=== PATIENT | male | born 1995 | race African-American/Black ===

== ENCOUNTER 2017-02-21 08:47 | Emergency (ER) | payer BC ==
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
[~2017-02-21 08:47] MED LIST: FLEXERIL10 MG PO; NAPROSYN-EC500 M1 PO; NO MEDICATIONS
[2017-02-21] MEDS ORDERED: LORTAB 5-325 M1 EACH (08:55)
[2017-02-21 09:53] LABS: INFLUENZA A NEG (NEG); INFLUENZA B NEG (NEG)
[2017-03-16] MEDS ORDERED: NO HOME MEDS (16:43)
[2017-03-19] MEDS ORDERED: TYL325 PO (21:27)
== END 2017-02-21 11:50 | disposition home or self-care (01) ==
LOC: SED 08:47
PROVIDERS: Emergency Medicine
DX: L73.2 Hidradenitis suppurativa (principal); R59.0 Localized enlarged lymph nodes; F17.210 Nicotine dependence, cigarettes, uncomplicated
CPT/HCPCS: 71250; 87651; 87804; 94640; 99284

== ENCOUNTER 2017-02-23 16:44 | Emergency (ER) | payer BC ==
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
--- NOTE | ~2017-02-23 | CT71 ---
[facility] A Service of [facility] RADIOLOGY TEXT RESULTS PATIENT: JARETH RUTH LOCATION: SED : [birth year] UNIT #: [id number] AGE: [address]: Jewel Dodge PAC SEX: M ORDER DR: [id number] [place] [id number] E MR#: [id number] Acc #: [id number] NAME: JARETH RUTH : 1995 SEX: M STUDY DATE/TIME: 02/23/2017 18:37 UNIT: SED ROOM: STUDY DESCRIPTION: CT Head Wo Contrast Attending Physician: Jewel Dodge P.A.-C. Ordering Physician: Jewel Dodge P.A.-C. Primary Care Physician: No Primary Care Physician MEDICAL IMAGING REPORT This report is preliminary unless electronic signature is present. EXAM Noncontrast head CT. HISTORY Fever, dizziness, swollen arms for [address], 03/06/2016. TECHNIQUE This CT exam was performed with one or more of the following radiation dose reduction techniques: automatic exposure control, adjustment of mA and/or kV according to patient size, and iterative reconstruction. FINDINGS Axial noncontrast imaging of the brain demonstrates no acute intracranial abnormality. No mass, mass effect, or midline shift. No hemorrhage. There is subtle decreased attenuation of the left posterior occipital lobe though this remains unchanged when compared to prior studies. This is of doubtful clinical significance and may be artifactual. Bony calvaria, skull base, mastoids, and sinuses unremarkable. IMPRESSION No acute intracranial abnormality identified. No change from head CT 03/06/2016. Dictated by... Anny Damon M.D. THIS IS AN ELECTRONICALLY VERIFIED REPORT [facility] A Service [facility] RADIOLOGY TEXT RESULTS PATIENT: JARETH RUTH LOCATION: SED : [birth year] UNIT #: [id number] AGE: [address]: Burckle,Jewel W PAC SEX: M ORDER DR: Anny Damon M.D. at 02/24/2017 2:21 PM JETT/amor TD: 02/23/2017 23:05 JOB #: [id number] MEDICAL IMAGING REPORT Page 1 of 1
--- NOTE | ~2017-02-23 | CT4 ---
[facility] A Service of [facility] RADIOLOGY TEXT RESULTS PATIENT: JARETH RUTH LOCATION: SED : [birth year] UNIT #: [id number] AGE: [address]: Jewel Dodge SEX: M ORDER DR: [id number] [place] [id number] E MR#: [id number] Acc #: [id number] NAME: JARETH RUTH : 1995 SEX: M STUDY DATE/TIME: 02/23/2017 19:33 UNIT: SED ROOM: STUDY DESCRIPTION: CT Abd and Pelv Wo Cont Attending Physician: Jewel Dodge P.A.-C. Ordering Physician: Jewel Dodge P.A.-C. MEDICAL IMAGING REPORT This report is preliminary unless electronic signature is present. EXAM CT abdomen and pelvis without contrast HISTORY Abdominal pain, nausea and vomiting since yesterday. COMPARISON CT chest 02/21/2017. TECHNIQUE Axial images performed through the abdomen and pelvis without contrast. Multiplanar reconstructed images reviewed. This CT exam was performed with one or more of the following radiation dose reduction techniques: automatic exposure control, adjustment of mA and/or kV according to patient size, and iterative reconstruction. FINDINGS Lung bases unremarkable. The liver, spleen, gallbladder, pancreas, kidneys and adrenal glands appear normal. No free air or free fluid. Moderate amount of colonic stool. No obstruction. Appendix not clearly seen but no focal inflammatory change identified. Retroperitoneum unremarkable. PELVIS: Bladder prostate appear normal. Osseous structures unremarkable. IMPRESSION No definite acute intraabdominal or intrapelvic pathology identified. Study limited due to lack of IV and oral contrast. The appendix not clearly seen but no focal inflammatory change is identified. There is a small amount of colonic stool and some increased fluid within the small bowel, nonspecific, could be seen with enteritis. [facility] A Service [facility] RADIOLOGY TEXT RESULTS PATIENT: JARETH RUTH LOCATION: SED : [birth year] UNIT #: [id number] AGE: [address]: Jewel Dodge SEX: M ORDER DR: Dictated by... Anny Damon M.D. THIS IS AN ELECTRONICALLY VERIFIED REPORT Anny Damon M.D. at 02/24/2017 2:22 PM JETT/mony TD: 02/23/2017 23:21 JOB #: [id number] MEDICAL IMAGING REPORT Page 1 of 1
[~2017-02-23 16:44] MED LIST changes: +LORTAB 5-325 M1 EACH
[2017-02-23] MEDS ORDERED: ANTIBIOTIC (16:57)
[2017-02-23 18:23] LABS: BASOPHIL% 0.6 % (0-2.5); DIFF IND NO; EOSINOPHIL% 0.3 % (0.0-7.0); HEMATOCRIT 36.9 % (38.0-50.0); HEMOGLOBIN 12.3 gm/dL (13.0-16.0); LYMPHOCYTE# 1.1 X10e3 (1.0-3.5); MEAN CELL VOLUME 83.7 FL (83-96); MEAN CORPUSCULAR HEMOGLOBIN 27.9 PG (28-34); MEAN CORPUSCULAR HGB CONC 33.3 g/dL (30-36); MEAN PLATELET VOLUME 9.5 FL (6.5-11.5); MONOCYTE# 0.5 X10e3 (0-1.0); MONOCYTE% 7.2 % (3.0-12.0); NEUTROPHIL# 4.9 X10e3 (1.5-7.1); NEUTROPHIL% 74.9 % (40-75); PLATELET COUNT 166 X10e3 (140-420); RED BLOOD COUNT 4.41 X10e (3.90-5.60); RED CELL DISTRIBUTION WIDTH 12.5 % (11.0-15.5); WHITE BLOOD COUNT 6.6 X10e3 (4.0-10.5)
[2017-02-23 18:24] LABS: URINE SOURCE CLEAN CATCH
[2017-02-23 18:26] LABS: MICRO INDICATED? YES; URINE APPEARANCE CLEAR; URINE BILIRUBIN NEG (NEG); URINE BLOOD 2+ (NEG); URINE COLOR YELLOW; URINE GLUCOSE NEG (NORM); URINE KETONE NEG (NEG); URINE LEUKOCYTE ESTERASE NEG (NEG); URINE NITRATE NEG (NEG); URINE PROTEIN NEG (NEG); URINE SPECIFIC GRAVITY 1.015 (1.003-1.035)
[2017-02-23 18:32] LABS: CULTURE INDICATED? NO; URINE BACTERIA NEG (NEG); URINE MUCUS PRESENT; URINE RBC 25-50 /[HPF] (0-2); URINE SQUAMOUS EPITHELIAL CELL FEW /[HPF]; URINE TRANSITIONAL EPI CELLS FEW /[HPF]; URINE WBC 0-2 /[HPF] (0-5)
[2017-02-23 18:43] LABS: ALBUMIN SERUM 3.8 g/dL (3.5-5.0); BILIRUBIN,TOTAL 0.3 mg/dL (0.2-2.0); CALCIUM SERUM 8.8 mg/dL (8.4-10.2); GLOM FILT RATE Estimated 123.3 mL/min (>60); POTASSIUM 3.7 mmol/L (3.5-5.1); PROTEIN TOTAL SERUM 7.4 g/dL (6.0-8.3)
[2017-03-16] MEDS ORDERED: NO HOME MEDS (16:43)
[2017-03-19] MEDS ORDERED: TYL325 PO (21:27)
== END 2017-02-23 20:52 | disposition home or self-care (01) ==
LOC: SED 16:44
PROVIDERS: Physician Assistant
DX: B34.9 Viral infection, unspecified (principal); F17.210 Nicotine dependence, cigarettes, uncomplicated
CPT/HCPCS: 36415; 70450; 71020; 74176; 80053; 81003; 83605; 85025; 86308; 87040; 96360; 99284